=== PATIENT | male | born 2000 | race Caucasian/White ===

== ENCOUNTER 2025-02-21 19:14 | Emergency (ER) | payer OTHER, SELFPAY ==
--- NOTE | ~2025-02-21 | XR_ITS ---
CLINICAL HISTORY: knee pain 4 view left knee Comparison: None Findings: Bones intact. No dislocations. No significant loss of joint space, osteophytes, or erosions. No joint effusion. No radiopaque foreign body. Small osteochondroma suggested along the medial femoral condyle. IMPRESSION: 1. No acute findings. 2. Small osteochondroma along the medial femoral condyle. This document has been electronically signed by: Fredo Lim MD on 02/21/2025 20:37:07
[2025-02-21 19:15] VITALS: BP 160/80; PULSE 88; O2SAT 100
[2025-02-21 19:27] VITALS: BP 130/69; PULSE 79; RESP 18; TEMP 36.9; O2SAT 98; BMI 31.7
--- OUTSIDE RECORDS SUMMARY | 2025-02-21 19:44 | XMS_ITS | Encounter Summary ---
Author Organization [facility] Address [address] [place], [place] [id number] Phone Care Team Providers Care Art Model Name Role Phone Unavailable Primary Care Provider Unavailabl e Encounter Details Date Type Department Care Team (Late st Contact Info) Description 04/10/2017 Documentation EM Family Medicine [facility] [place], [place] [id number] Family Medicine, Physician [address] [place] [id number] Social History Tobacco Use Types Packs/Day Years Used Date Smoking Tobacco: Never Comments:Never smoker Sex and Gender Information Value Date Recorded Sex Assigned at Not on file Legal Sex Male 5:02 PM EDT Gender Identity Not on file Sexual Orientation Not on file documented as of this encounter Plan of Treatment Not on file documented as of this encounter Visit Diagnoses Not on filedocumented in this encounter
--- OUTSIDE RECORDS SUMMARY | 2025-02-21 19:44 | XMS_ITS | Clinical Summary ---
Author Organization [facility] Address [address] [place] [id number] Phone Care Team Providers Care Cotton Bag Clipper Name Role Phone Unavailable Primary Care Provider Unavailabl e Allergies Active Allergy Reactions Criticality Noted Date Comments Dust Mite Extract Cough 07/21/2017 Medications beclomethasone 42 MCG/SPRAY nasal spray Administer 2 sprays into each nostril 2 (two) times a day. Dose is for each nostril. Active albuterol HFA 108 (90 BASE) MCG/ACT inhalerIndicati ons:Respiratory anomaly Inhale 2 puffs every 4 (four) hours as needed for wheezing or shortness of breath. 1 Units 7 Active Additional Information Patient not taking.Reported on 09/03/2018 Active Problems Problem Noted Date Diagnosed Date Chronic non-seasonal allergic rhinitis 7 Overview (09/15/2019): Uses allergy medication occ - hasn't needed it since spring 2018, no regular use only as needed per pt at 08/2019. Assessment & Plan (09/15/2019 12:19 AM EDT): Proper use of medications, discussed that he is most likely to get good symptoms relief if taking medication daily when sx start to appear vs using PRN and pros/cons of treating vs other sx care discussed. Follow up if sx change or worsen. Assessment & Plan (09/04/2018 1:22 AM EDT): Uses singulair and flonase as needed, but not daily, end of summer and winter usually most need. No daily medications, no other recurrent sx. Tx plan usually helpful. Assessment & Plan (10/05/2017 1:09 AM EST): Encouraged family to call bung remover to be seen sooner. More worrisome changes to monitor for reviewed. Try to decreased allergen exposures - clean and dust more frequently at home. BMI (body mass index), pedia tric, greater than or equal to 95% for age 0807/21/2017 Overview (09/04/2018): Healthy food choices, daily activity encouraged, limit sweetened beverages, portion control. Immunizations Immunization Administration Dates Next Due DTaP 5 05/27/2006, 3,2002,09/09,2002 H1N1 10/24/2009 HPV Vaccine 9 Valent 11/28/2015 HPV, Quadrivalent 07/06/2015,07/04/2014 Hep A, ped/adol 07/06/2015,06/19/2011 Hep B, ped/adol 02/06/2003,2002,2002 Hib (PRP-T) 08/11/2003, 2,2002,07/08 IPV 05/27/2006, 3,2002,07/08 Influenza, injectable, quadr ivalent, preservative free 09/13/2019,09/03/2018 Influenza, intranasal, quadrivalent 09/14/2014 MMR 05/27/2006,05/24/2003 Meningococcal B Trumenba 09/13/2019 Meningococcal Conj (Menactra) MCV4P 09/13/2019,0 07/21/2017,06/30/2013 Pneumococcal Conjugate 08/11/2003,2001,2002,07/08 Tdap 06/30/2013 Varicella 06/01/2008,05/24/2003 Family History Medical History Relation Name Comments Hypertension Father Haley Depression Mother Shamika Hypertension Mother Shamika Depression Sister 1 Gely Migraines Sister 2 Gina Vitiligo Sister 2 Gina Relation Name Status Comments Father Haley Alive Father: Alive a nd well Maternal Grandmother Materna l grandmother: , cardiac Mother Shamika Alive Mother: Depress ion Other Family history of Hyperlipidemia, Family history of Obesity Paternal Grandfather Paterna l grandfather: Cancer - oral, CVA/diabetes Sister 1 Gely Alive Sister: Depress ion, asthma, post concussive syndrome (7) Sister 2 Gina Alive Social History Tobacco Use Types Packs/Day Years Used Date Smoking Tobacco: Never Smokeless Tobacco: Never Tobacco Cessation:Counseling Given: Yes Comments:Never smoker Alcohol Use Standard Drinks/Week Comments No 0 (1 standard drink = 0.6 oz pur e alcohol) Sex and Gender Information Value Date Recorded Sex Assigned at Not on file Legal Sex Male 5:02 PM EDT Gender Identity Not on file Sexual Orientation Not on file Last Filed Vital Signs Vital Sign Reading Time Taken Comments Blood Pressure 123/70 09/13/2019 2:21 PM EDT Pulse 70 09/13/2019 2:21 PM EDT Temperature 36.1 ??C (96.9 ??F) 04/28/2019 8:38 AM ED T Respiratory Rate - - Oxygen Saturation 97% 04/28/2019 8:38 AM EDT Inhaled Oxygen Concentration - - Weight 96.3 kg (212 lb 6.4 oz) 09/13/2019 2:21 P M EDT Height 182.9 cm (6') 09/13/2019 2:21 PM EDT Body Mass Index 28.81 09/13/2019 2:21 PM EDT Plan of Treatment Health Maintenance Due Date Last Done Comments Men B Vaccine (2 of 2 - Trum enba SCDM 2-dose series) 03/14/2020 09/13/2019 DTaP,Tdap,and Td Vaccines (7 - Td or Tdap) 06/30/2023 06/30/2013, 05/27/2006, 11/22/2003, Additional history exists Influenza Vaccines (#1) 2024 09/13/20, 09/03/2018, 09/14/2014 COVID-19 Vaccine (2023-2 5 season) 2024 Hepatitis B Vaccines Completed 02/06/2003, 2002, 2002 HIB Vaccines Completed 08/11/2003, 10/24, 2002, Additional history exists Pneumococcal Vaccine Completed 08/11/2003, 2002, 2002, Additional history exists IPV Vaccines Completed 05/27/2006, 01/21, 2002, Additional history exists MMR Vaccines Completed 05/27/2006, 05/24/2003 Varicella Vaccines Completed 06/01/2008, 05/24/2003 Hepatitis A Vaccines Completed 07/06/2015, 06/19/20 11 HPV Vaccines Completed 11/28/2015, 06/23, 07/04/2014 Meningococcal Vaccine Completed 09/13/2019 , 07/21/2017, 06/30/2013 Insurance [employer]
--- OUTSIDE RECORDS SUMMARY | 2025-02-21 19:44 | XMS_ITS | Encounter Summary ---
Author Organization [facility] Address [address] [place], [place] [id number] Phone Care Team Providers Care Head Chef Name Role Phone Unavailable Primary Care Provider Unavailabl e Encounter Details Date Type Department Care Team (Late st Contact Info) Description 04/10/2017 Documentation EM Family Medicine [facility] [place], [place] [phone] Family Medicine, Physician [address] [place] [id number] Social History Tobacco Use Types Packs/Day Years [...]
--- OUTSIDE RECORDS SUMMARY | 2025-02-21 19:44 | XMS_ITS | Encounter Summary ---
Author Organization [facility] Address [address] [place], [place] [phone] Phone Care Team Providers Care Hadoop Application Developer Name Role Phone Unavailable Primary Care Provider Unavailabl e Encounter Details Date Type Department Care Team (Late st Contact Info) Description 04/10/2017 Documentation EM Family Medicine [facility] [place], [place] [phone] Family Medicine, Physician [address] [place] [id number] Social History Tobacco Use Types Packs/Day Years [...]
--- NOTE | 2025-02-21 19:45 | ED.LOWEXIN ---
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 He reports bearing full weight on the left leg, hearing a pop, followed by 8/10 medial knee pain. He has a history of medial ligament strain in 2020 which was treated with a knee immobilizer and physical therapy exercises. Denies any surgical history. In the ED he is in 3/10 pain, is most comfortable with the knee with extension resting on the stretcher. Has continuous medial knee pain that does not radiate anywhere. Has not taken anything for the pain. Has not attempted to bear weight on the left leg since the injury. Denies numbness, tingling, or loss of sensation. MD complaint: knee injury Onset (ago): hour(s) Injury: Left: knee Place: work Severity: mild Severity scale (1-10): 3 (3/10 pain) Relieving factors: nothing Exacerbating factors: weight bearing and movement Associated symptoms: snap/pop sensation Other symptoms: none Related Data Allergies Allergy/AdvReac Type Severity Reaction Status Date / Time mite-Dermatophagoides Allergy Cough Verified 02/21/25 19:29 pteronyssinus [dust mite - ] nickel Allergy Rash Verified 02/21/25 19:29 Review of Systems Review of Systems: Yes all other systems are reviewed and are negative Musculoskeletal: Musculoskeletal: Reports arthralgias, Reports joint swelling and Reports limited range of motion [facility] Past Medical History [facility] Narrative: PMHx of allergies, treated with OTC meds Physical Exam Vital Signs: Vital Signs: Last Vital Signs Temp 98.6 F 02/21/25 21:12 Pulse 82 02/21/25 21:12 Resp 16 02/21/25 21:12 BP 130/73 02/21/25 21:12 Pulse Ox 96 02/21/25 21:12 O2 Del Method Room Air 02/21/25 21:12 BMI result Body Mass Index 31.7 Const: General: cooperative, healthy appearing, comfortable and no acute distress HEENT: Head: Yes normal to inspection, Yes normocephalic and Yes atraumatic Ears: hearing grossly normal bilaterally Eyes: General: appearance normal, both eyes and all related structures Neck: Neck: Yes normal visual inspection and Yes full ROM Resp: Effort & Inspection: normal respiratory effort and able to speak in complete sentences Auscultation: clear to auscultation bilaterally Cardio: Rate: regular rate Rhythm: regular rhythm Heart sounds: S1 normal heart sound present and S2 normal heart sound present Skin: General skin exam: no rashes or lesions noted Extrem: Left lower extremity: knee Details: swelling Location: of the patella, abnormal ROM Details: pain with active ROM Details: with flexion and pain with passive ROM Details: with flexion and knee ligament exam abnormal Medical Decision Making Medical Decision Making MDM Narrative: 24 year old male presenting with medial knee pain and mild edema after hearing knee pop with axial loading/full weight bearing on left leg as 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 Likely MCL sprain given history of sprain, medial knee pain, limitation of knee flexion to 90 degrees. Intact sensory neuro, extensive damage unlikely. Negative valgus and varus stress test. No bony patellar deformity, no misalignment or pain with palpation, patellar fracture or dislocation less likely. No calf tenderness or swelling. No deformity or quad muscle weakness, less likely quadriceps tendon tear. No pain or bony deformities above or before the knee joint, less likely femoral or tibial fractures. Will obtain XR. No acute fracture or dislocation noted on XR, was placed in a knee immobilizer provided with crutches, advised outpatient follow-up with orthopedics uncertain improvement in the interim. Reviewed strict return precautions. All questions answered. Stable for discharge Differential Diagnosis Differential Diagnoses: The differential diagnosis associated with the presentation includes ( see narrative above) Independent Interpretation I performed an independent interpretation of an: Plain X-Ray (see above) Radiology Impression Discussion of test interpretation with radiology: I have reviewed the radiologist's reading. Radiologist Impression: 4 view left knee Comparison: None Findings: Bones intact. No dislocations. No significant loss of joint space, osteophytes, or erosions. No joint effusion. No radiopaque foreign body. Small osteochondroma suggested along the medial femoral condyle. IMPRESSION: 1. No acute findings. 2. Small osteochondroma along the medial femoral condyle. Independent Historian Clinical information obtained from an independent historian. History obtained from or confirmed by: Parent Tests considered The following testing was considered but not selected: no indication for emergent MRI Prescription Management I considered prescription management with: Pain Medication Discharge Plan Discharge Clinical Impression: Knee sprain Patient Disposition: Home, Self-Care Instructions: Knee Sprain (ED), Crutch Instructions (ED), R.I.C.E. Treatment (ED) Additional Instructions: as discussed x-ray today did not show evidence of any fracture dislocation which is reassuring. However as mentioned, things such as ligamentous or meniscus injuries are not well appreciated on x-ray imaging. Use the knee immobilizer as provided, weight bear only as tolerated without severe pain and use of crutches over the next few days. I have provided contact information for the orthopedic office associated with our hospital, you will have to contact them directly to arrange for follow-up they will not contact you. However, as discussed you may follow-up with any orthopedic office of your discretion, you may need to contact their office to determine what their referral process is and speak with your primary care doctor additionally if they require an alternative referral. You can take ibuprofen 200 mg, 3 tablets (600mg) every 6-8 hours as needed for pain, in addition to Tylenol 500 mg, 2 tablets (1,000mg) every 4-6 hours as needed for pain, but not to exceed 3 doses daily (3,000mg).? Apply ice for 10-15 minutes 4-6 times daily. You may return with any new or worsening symptoms or concerns. [place]errals: [facility] [place] Group] Oleg Mcmullen MD [Primary Care Provider] - Stand Alone Forms: Work/School Release Interventions: ED Discharge Assessment Last Done: 02/21/25 21:12 Discharge Date/Time: 02/21/25 21:13 Print Language: [place] Helen[place]
[2025-02-21 21:11] VITALS: BP 130/73; PULSE 82; RESP 16; TEMP 37; O2SAT 96
[2025-02-21 21:12] VITALS: BP 130/73; PULSE 82; RESP 16; TEMP 37; O2SAT 96
== END 2025-02-21 21:13 | disposition home or self-care (01) ==
PROVIDERS: Emergency Provider Emergency Medicine; PCP Family Medicine
DX: S83.92XA Sprain of unspecified site of left knee, initial encounter (principal); X50.9XXA Other and unspecified overexertion or strenuous movements or postures, initial encounter; M25.562 Pain in left knee; Y93.89 Activity, other specified; Y92.9 Unspecified place or not applicable; Y99.0 Civilian activity done for income or pay
CPT/HCPCS: 73564; 99283

== ENCOUNTER → 2025-02-21 19:58 | Outpatient (BNV) | payer OTHER, SELFPAY | PROVIDERS: PCP Family Medicine; Visit Provider Radiology Vascular & Interventional Radiology | DX: D16.22 Benign neoplasm of long bones of left lower limb (principal) | CPT/HCPCS: 73564 ==